=== PATIENT | female | born 1960 | race American Indian/Alaskan Native ===

== ENCOUNTER → 2016-08-23 | Outpatient (CLI) | payer OTHER ==
[~2016-08-23] MED LIST: ARIP5TAB7 PO; CRES10 PO; DULO60CA6 PO; ESZO3TAB12 PO; FENO135C3 PO; FURO40TA4 PO; LAMO5TB.2 PO; LORA-444 PO; QUET200T4 PO; [UNRECOGNIZED DRUG - CODE] GTB
--- NOTE | 2016-08-23 15:11 | RADRPT ---
PROCEDURE: XR right knee. CLINICAL INDICATION: Knee pain. TECHNIQUE: Three views are available for review. 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 There is no evidence of loosening of the prosthesis. The osseous structures are normal in mineralization, architecture and alignment No acute fracture or dislocation is seen.No osseous lesions are identified. The soft tissues are unremarkable . there i s a small suprapatellar joint effusion IMPRESSION: Unremarkable constrained total knee replacement. Small suprapatellar joint effusion RPTAT: [facility] .Richar Rodriguez MD, MD Date Time Electronically viewed and signed by .Richar Rodriguez MD, on 08/23/2016 15:11 .B/
--- NOTE | 2016-08-23 20:19 | HKNOTE ---
DATE OF SERVICE: 08/23/2016 MAIN COMPLAINT: Pain in the right knee, possibly related to her right total knee replacement. HISTORY OF MAIN COMPLAINT: The patient is a 56-year-old female who underwent a right knee replaceme nt on 01/22/2013. She has been perfectly satisfied with the result of the surgery. When she was se en on 02/09/2015, she was seen for a fall in which she landed on the right knee. Before that, she h ad no pain in the knee whatsoever. She was diagnosed after a full evaluation as possibly having a h erniated lumbar disk. She was given a prescription for Flexeril and [place] and was referred to Dr. Patricia santillan for a spine consultation. She did not see Dr. Estrada. She now complains of a "lump under the skin" which is very painful and if she twists her knee in a p articular way, the pain is so severe she cannot untwist the knee. She can walk as far as she likes and as long as she does not get pain from the lump, she is fine. She mainly gets pain when she star ts out in the morning and straightens out her knee. She also gets the pain at night if she twists t he knee the wrong way. She is not using a walking aid. She can walk 2 miles at a time without stop ping. She is not taking any medications for the pain. She had a CAT scan with ____ and since she last saw me, she had an anaphylactic shock. She also had a gastric sleeve inserted and she lost weight from 295 pounds to 182 pounds. PHYSICAL EXAMINATION GENERAL: A fit-looking and delightful, 56-year-old female. VITAL SIGNS: Height 5 feet 6", weight 182 pounds, blood pressure 105/65, temperature 98.1. EXTREMITIES: Examination of the right knee, the knee is completely normal, except with a full range of motion and without pain except that the patient was able to find a tender point lateral to the i ncision scar, where she is markedly tender. DISCUSSION: This possibly is a neuroma. PROCEDURE: Under sterile conditions the lump was injected with lidocaine. MANAGEMENT: I have advised the patient that if it continues to bother her, we should consider excis ing it under local anesthetic. The procedure will need to be done in the hospital because it is gricelda y difficult to find a neuroma. She will call if and when she wishes to proceed with the operation u nder local anesthetic. Dictated By: SIMRAN PEREZ/JAROD Conf#: [id number] DID#: [id number]
== END | disposition home or self-care (01) ==
LOC: HKI 14:37
DX: M25.561 Pain in right knee (principal); R22.41 Localized swelling, mass and lump, right lower limb; Z96.651 Presence of right artificial knee joint
CPT/HCPCS: 73562; G0463

== ENCOUNTER → 2016-09-14 | Outpatient (CLI) | payer OTHER ==
--- NOTE | 2016-09-14 18:24 | HKNOTE ---
DATE OF SERVICE: 09/14/2016 The patient had a right total knee 5 years ago. She developed pain in the right knee about 2 years ago. Occasionally the right knee feels unstable, and that is also for the last 2 years. Note that patient frequently gets hypotension, and she has fallen "many dozens of times." Her daughter who co mes with her corroborates the number of falls. She re-injured her knees many times. PHYSICAL EXAMINATION: RIGHT KNEE: No external sign of infection or inflammation. The knee has a full range of motion. L igaments all appear intact. There is no subluxation of the knee in any direction. There is possibl y some laxity of the medial collateral ligament. A small lump can be felt under the skin on the med ial side of the incision that apparently triggers a pain reaction. This is probably a small neuroma . The patient would like to have the neuroma removed. New x-rays of her right knee obtained today show all components to be well aligned and well placed w ithout any evidence or suggestion of underlying problem. MANAGEMENT: The patient is advised that we can excise the neuroma. This may not solve all her prob lems. At her request, she was given a prescription for tramadol for sleep at night. She is being s ent for lower limb EMGs and nerve conduction studies to see if anything may ____. She would like to proceed with an excision of the neuroma under local anesthetic (she says she prefe rs general). She was given a prescription for tramadol at her request. She is being sent for lower extremity EMGs, nerve conduction studies on the right leg (there seems to be some weakness of the q uadriceps muscle). She will be seen again thereafter for re-evaluation. She was given a prescripti on for tramadol 500 mg to be taken over next 2 or 3 weeks. Dictated By: SIMRAN PEREZ/JAROD Conf#: [id number] DID#: [id number]
== END | disposition home or self-care (01) ==
LOC: HKI 14:47
DX: M25.561 Pain in right knee (principal); Z96.651 Presence of right artificial knee joint

== ENCOUNTER → 2016-09-27 | Outpatient (CLI) | payer OTHER ==
[~2016-09-27] MED LIST changes: +POTA20TA15 PO
--- NOTE | 2016-09-27 21:02 | HKNOTE ---
DATE OF SERVICE: 09/27/2016 The patient comes in for preoperative evaluation. She is scheduled to have removal of a subcutaneou s neuroma from her right knee area on 09/29/2016. She has been cleared for surgery by Dr. Karolina polo. The patient continues to complain of symptoms in her right leg that suggest that she has lumbar radiculopathy. The neuroma is fairly easy to palpate. The patient was warned that once we get under the skin it co uld easily disappear on me and I may not be able to remove all of it. She understands that as a pos sible complication of the operation. She also has a history of C. difficile, and I'd prefer not giv e her any antibiotics preoperatively. With regard to all her other symptoms in her right knee: She is suspicious of my diagnosis that this may be coming from her back. We will ask the anesthesiologist to manage her under epidural anesthesia and at the same time will p ut some cortisone into the epidural catheter. The patient is on board with this and wholeheartedly embraces the idea. Dictated By: SIMRAN PEREZ/JAROD Conf#: [id number] DID#: [id number]
== END | disposition home or self-care (01) ==
LOC: HKI 13:12
DX: D36.13 Benign neoplasm of peripheral nerves and autonomic nervous system of lower limb, including hip (principal)
CPT/HCPCS: G0463

== ENCOUNTER 2016-09-29 09:46 | Day surgery (SDC) | payer OTHER ==
[2016-09-28 14:41] VITALS: Ht 167.6 cm; Wt 84.0 kg
[2016-09-29] VITALS (14 sets, daily range): BP systolic 83–116; BP diastolic 47–80; PULSE 80–96; RESP 16–26
[~2016-09-29] VITALS: Ht 167.6 cm; Wt 84.0 kg
[~2016-09-29 09:46] MED LIST changes: -POTA20TA15 PO
[2016-09-29] MEDS ORDERED: LACTATED RINGER'S 1,000 ML IV* SCH (13:00)
[2016-09-29] MEDS ORDERED: ACETAMINOPHEN 1000MG/100ML IV 100 ML IVPB ONE (13:00)
[2016-09-29] MEDS ORDERED: LANSOPRAZOLE 30 MG CAP PO ONE (13:00)
[2016-09-29] MEDS ORDERED: VANCOMYCIN 1 GM (PMX) 250 ML IVPB ONE (13:00)
[2016-09-29] MEDS ORDERED: ONDANSETRON 4 MG INJ IV ONE (13:00)
[2016-09-29] MEDS ORDERED: DEXAMETHASONE 4 MG/ML 1 ML INJ IV ONE (13:00)
[2016-09-29] MEDS ORDERED: POTA20TA15 PO (13:56)
--- NOTE | 2016-09-29 14:27 | HPN ---
Date/Time of Note Date/Time of Note DATE: 09/29/16 TIME: 14:27 Interval H&P Admission Note Pt. seen H&P reviewed: No system changes ROBERT HERBERT PA-C Sep 29, 2016 14:27
[2016-09-29] MEDS ORDERED: BUPIVACAINE 0.25%/EPI (SDV) 30 ML INJ ONE (14:45)
[2016-09-29] MEDS ORDERED: MIDAZOLAM 1 MG/ML 2 ML INJ ONE (14:54)
[2016-09-29] MEDS ORDERED: BUPIVACAINE 0.25% (MPF) 30 ML INJ ONE (15:19)
[2016-09-29] MEDS ORDERED: FENTAnyl 50 MCG/ML VIAL ONE ×3 (15:19→16:24)
[2016-09-29] MEDS ORDERED: TRIAMCINOLONE ACET 40 MG/ML INJ ONE (15:56)
[2016-09-29] MEDS ORDERED: DIPHENHYDRAMINE 50 MG INJ IV PRN (16:00)
[2016-09-29] MEDS ORDERED: ONDANSETRON 4 MG INJ IV PRN (16:00)
[2016-09-29] MEDS ORDERED: METOCLOPRAMIDE 10 MG INJ IV PRN (16:00)
[2016-09-29] MEDS ORDERED: KETOROLAC 30 MG INJ ONE (16:23)
[2016-09-29] MEDS ORDERED: PROPOFOL 20 ML ONE (16:25)
[2016-09-29] MEDS ORDERED: LIDOCAINE 2% (SDV) 5 ML INJ ONE (16:25)
--- NOTE | 2016-09-29 16:54 | OPR ---
DATE OF OPERATION: 09/29/2016 SURGEON: Agustin Fitzgerald MD TUNNELLER: Alexandro Munoz PA-C ANESTHESIOLOGIST: Dr. Mc PREOPERATIVE DIAGNOSES: 1. Painful neuroma of the anterior aspect of the right knee following right knee replacement. 2. Unusual symptoms of right-sided sciatica. POSTOPERATIVE DIAGNOSES: 1. Painful neuroma of the anterior aspect of the right knee following right knee replacement. 2. Unusual symptoms of right-sided sciatica. PROCEDURE: 1. Exploration of tender linear structure under the skin and excision of the same. 2. Removal of a FiberWire stitch in the close proximity to the above. 3. Lumbar epidural cortisone injection. DISCUSSION: The patient has very unusual symptoms in her right knee. She has had a right knee repl acement. Symptoms include feeling in the knee as if there is "a tight vice in the knee." These symptoms only came on a few years after she had had a knee replacement. Her right knee replacement has been evaluated from every point of view, and there is no explanation for this discomfort. The patient has been advised that I have seen this in the past and that it was related to sciatica. The patient does have some of the symptoms of sciatica. The patient is therefore being treated with a multimodal approach of 1. Removing the irritation nerve. 2. Lumbar epidural cortisone injection. At surgery, it was discovered that along the line of the irritated nerve was a FiberWire stitch that had been inserted to support the capsule. This was excised. DESCRIPTION OF PROCEDURE: Under epidural anesthetic and local anesthetic infiltration, the area of the "neuroma" was localized. Note that this was done before the leg had been prepped. Indelible pe ncil was used to bharat the orientation of the "nerve." The right leg was then prepared and draped in the usual sterile fashion. A vertical incision was made in the line of the previous surgical scar. Incision was deepened through the deep fascia. My junior administrative assistant and I repeatedly palpated the linear structure as we went deeper, and we eventually found a linear soft tissue structure which possibly c ould have been a piece of deep fascia fabricated into a nerve or indeed it may well be possibly a ne rve. The nerve was followed medially and laterally. Toward the medial side, we encountered a FiberWire s titch that had been used to oppose the edges of the wound. The FiberWire stitch was removed. A segment of the nerve was excised. Bleeding points were cauteri zed. The wound was irrigated. The wound was now closed using interrupted Vicryl in the deep tissue s and 3-0 nylon on the skin. The usual sterile dressings were applied. There were no complications as far as is known. Dictated By: AGUSTIN PEREZ/JAROD Conf#: [id number] DID#: [id number]
[2016-09-29] MEDS: FENTAnyl 50 MCG/ML VIAL IV PRN ×3 (17:11→17:30)
== END 2016-09-29 18:21 | disposition home or self-care (01) ==
LOC: SDS 09:46
DX: D36.13 Benign neoplasm of peripheral nerves and autonomic nervous system of lower limb, including hip (principal); M54.31 Sciatica, right side; I10 Essential (primary) hypertension; E66.9 Obesity, unspecified; Z68.29 Body mass index [BMI] 29.0-29.9, adult
CPT/HCPCS: 64784; J0131; J1100; J2250; J2405; J3010; J3370; J7120; J1885

== ENCOUNTER → 2016-10-04 | Outpatient (CLI) | payer OTHER ==
[~2016-10-04] MED LIST changes: +POTA20TA15 PO; -[UNRECOGNIZED DRUG - CODE] GTB
--- NOTE | 2016-10-04 15:13 | PN ---
Date/Time of Note Date/Time of Note DATE: 10/04/16 TIME: 15:07 Outpatient Progress Note Chief Complaint Postoperative visit status post neuroma excision to the right knee performed on 09/29/2016 HPI 56-year-old female presents today for postoperative appointment status post right knee neuroma excision performed on 09/29/2016. Patient has complaints of soreness directly over surgical wound site. Patient is up and ambulating independently without assisted ambulation device. Denies any falls. No calf pain, chest pain/tightness or shortness of breath. Overall patient doing well outside of soreness to the knee. She does have complaints of radiating symptoms traveling from the mid thigh down to the mid calf region along the lateral side. Review of Systems Const: No Fever, no chills, no Fatigue, normal appetite, no diaphoresis. Resp: No SOB, no wheezing, no chest pain. CV: No chest pain, no palpitaions, no TOUSSAINT. Physical Exam Blood pressure is 106/59, temperature 97.6, pulse 73, respiratory rate 12, height 5 feet 6 inches, weight 181 pounds Right knee: Patient is flexing up to 120 with full extension today. Gait is normal but patient has complaints of antalgic gait that is mild status post surgery. Wound site is clean dry and intact. Sutures intact. No signs of infection. No discharge. Negative Homans sign/calf pain. Allergies Coded Allergies: Penicillins (Verified Allergy, Unknown, 09/28/16) Sulfa (Sulfonamide Antibiotics) (Verified Allergy, Unknown, 09/28/16) latex (Verified Allergy, Unknown, 09/28/16) meperidine HCl (Verified Allergy, Unknown, HIVES, 09/28/16) morphine (Verified Allergy, Unknown, 09/28/16) Uncoded Allergies: CONTRAST DYE (Allergy, Severe, ANAPHALACTIC, 09/28/16) Assessment/Plan * CT scan without contrast ordered today for possible suspected lumbar spine etiology for radicular symptoms. * Dress change performed today. Wound care instructions discussed with patient in detail. * Follow-up next week for suture removal and repeat evaluation. * Anti-inflammatories as needed for pain relief. * Follow-up [address] Fitzgerald was present and has also seen patient. Agrees with plan. Medications Home Meds Reported Medications Potassium Chloride* (K-Dur*) 20 Meq Tab.prt.sr, 20 MEQ PO BID, TAB.SA 09/29/16 Fenofibric Acid (Choline) (Trilipix) 135 Mg Capsule.dr, 135 MG PO HS 01/22/13 Quetiapine Fumarate* (Seroquel* XR) 200 Mg Tab.sr.24h, 200 MG PO HS 01/22/13 Lorazepam* (Ativan*) 2 Mg Tablet, 1 MG PO TID 01/22/13 Furosemide (Lasix) 40 Mg Tab, 40 MG PO BID 01/22/13 Eszopiclone (Lunesta) 3 Mg Tablet, 3 MG PO HS 01/22/13 Rosuvastatin Calcium* (Crestor*) 10 Mg Tablet, 10 MG PO HS 11/22/12 Lamotrigine* (Lamictal* CHEW) 5 Mg Tab.disper, 100 MG PO BID 11/22/12 Aripiprazole* (Abilify*) 5 Mg Tab, 5 MG PO HS 11/22/12 Duloxetine Hcl* (Cymbalta*) 60 Mg Capsule.dr, 60 MG PO BID 11/22/12 Discontinued Reported Medications Potassium Chloride* (Kcl* (PEDIATRIC)) 1.333 Meq/Ml Liq, 20 MEQ GTB BID 11/22/12 ROBERT HERBERT PA-C Oct 04, 2016 15:12
== END | disposition home or self-care (01) ==
LOC: HKI 14:13
DX: Z48.89 Encounter for other specified surgical aftercare (principal); M25.561 Pain in right knee; M79.604 Pain in right leg

== ENCOUNTER → 2016-11-01 | Outpatient (CLI) | payer OTHER ==
--- NOTE | 2016-11-01 14:00 | PN ---
Date/Time of Note Date/Time of Note DATE: 11/01/16 TIME: 13:56 Outpatient Progress Note Chief Complaint Status post neuroma excision on 09/29/2016. HPI 56-year-old female presents today for postoperative visit in regards to suspected right knee neuroma excision performed on 09/29/2016. No pain complaints today. Patient is doing much better since the surgery. Originally scheduled to follow-up about 2 weeks ago but patient had an incident where she fell due to hypotension and suffered concussion. Observed in hospital (outside facility) and then further discharge. Denies any neurological deficit since being discharged from outside hospital facility. No complaints of the knee at this time. Presents today for suture removal. Review of Systems Const: No Fever, no chills, no Fatigue, normal appetite, no diaphoresis. Resp: No SOB, no wheezing, no chest pain. CV: No chest pain, no palpitaions, no TOUSSAINT. Physical Exam Blood pressure is 113/71, temperature is 98.6, pulse is 104, respiratory rate is 12, height is 5 foot 6 inches, weight is 178 pounds. General Appearance: well-developed, well-nourished, in no acute distress. Right knee: No tenderness to palpation. Knee is clean dry and intact with sutures intact. No signs of infection. Patient is flexing up to 120. Full extension. Gait is normal and nonantalgic. Allergies Coded Allergies: Penicillins (Verified Allergy, Unknown, 09/28/16) Sulfa (Sulfonamide Antibiotics) (Verified Allergy, Unknown, 09/28/16) latex (Verified Allergy, Unknown, 09/28/16) meperidine HCl (Verified Allergy, Unknown, HIVES, 09/28/16) morphine (Verified Allergy, Unknown, 09/28/16) Uncoded Allergies: CONTRAST DYE (Allergy, Severe, ANAPHALACTIC, 09/28/16) Assessment/Plan * Suture removal performed today. * Continue daily activities and gradually increase intensity. * Patient continues to do well. * Follow-up as needed. Medications Home Meds Reported Medications Potassium Chloride* (K-Dur*) 20 Meq Tab.prt.sr, 20 MEQ PO BID, TAB.SA 09/29/16 Fenofibric Acid (Choline) (Trilipix) 135 Mg Capsule.dr, 135 MG PO HS 01/22/13 Quetiapine Fumarate* (Seroquel* XR) 200 Mg Tab.sr.24h, 200 MG PO HS 01/22/13 Lorazepam* (Ativan*) 2 Mg Tablet, 1 MG PO TID 01/22/13 Furosemide (Lasix) 40 Mg Tab, 40 MG PO BID 01/22/13 Eszopiclone (Lunesta) 3 Mg Tablet, 3 MG PO HS 01/22/13 Rosuvastatin Calcium* (Crestor*) 10 Mg Tablet, 10 MG PO HS 11/22/12 Lamotrigine* (Lamictal* CHEW) 5 Mg Tab.disper, 100 MG PO BID 11/22/12 Aripiprazole* (Abilify*) 5 Mg Tab, 5 MG PO HS 11/22/12 Duloxetine Hcl* (Cymbalta*) 60 Mg Capsule., 60 MG PO BID 11/22/12 ROBERT HERBERT PA-C November 01, 2016 14:00
== END | disposition home or self-care (01) ==
LOC: HKI 13:22
DX: Z47.89 Encounter for other orthopedic aftercare (principal); D36.13 Benign neoplasm of peripheral nerves and autonomic nervous system of lower limb, including hip
CPT/HCPCS: G0463

== ENCOUNTER → 2018-02-18 | Outpatient (CLI) | END | disposition home or self-care (01) ==

== ENCOUNTER → 2018-03-04 | Outpatient (CLI) | END | disposition home or self-care (01) ==

== ENCOUNTER 2018-03-14 10:10 | Inpatient (IN) | END 2018-03-16 18:11 | disposition home or self-care (01) | DRG 470 ==

== ENCOUNTER → 2018-03-25 | Outpatient (CLI) | END | disposition home or self-care (01) ==